=== PATIENT | female | born 1950 | race African-American/Black ===

== ENCOUNTER 2021-10-11 07:11 | Day surgery (SDC) | payer OTHER ==
[2021-10-09 16:30] VITALS: BMI 34.5
[2021-10-11 07:30] VITALS: RESP 18
[2021-10-11] MEDS ORDERED: PROPOFOL 20 ML ONE ×4 (07:56)
[2021-10-11] MEDS ORDERED: LIDOCAINE HCL/PF 2% SDV 5ML VIAL ONE (07:56)
[2021-10-11 08:45] VITALS: TEMP 97.3
[2021-10-11 08:59] VITALS: BP 110/71; PULSE 58
== END 2021-10-11 09:09 | disposition home or self-care (01) ==
LOC: FASU-ENDO 07:11
PROVIDERS: ATTEND Internal Medicine Gastroenterology
PROC: 0DJD8ZZ Inspection of Lower Intestinal Tract, Via Natural or Artificial Opening Endoscopic (ICD-10-PCS; principal; 2021-10-11 08:16)
DX: Z12.11 Encounter for screening for malignant neoplasm of colon (principal); K57.30 Diverticulosis of large intestine without perforation or abscess without bleeding